=== PATIENT | female | born 2000 | race Two or more races ===

== ENCOUNTER 2021-02-10 16:44 | Emergency (ER) | payer BC, OTHER ==
[~2021-02-10] VITALS: Ht 162.6 cm; Wt 94.3 kg
[2021-02-10 21:15] VITALS: BP 113/72
== END 2021-02-10 21:18 | disposition home or self-care (01) ==
LOC: ER 16:44
DX: I88.9 Nonspecific lymphadenitis, unspecified (principal)
CPT/HCPCS: 70490; 76536; 81025

== ENCOUNTER 2021-07-28 20:13 | Emergency (ER) | payer BC ==
[~2021-07-28] VITALS: Ht 162.6 cm; Wt 94.8 kg
[2021-07-29] MEDS ORDERED: methylPREDNISolone SOD SUCC 125 MG/2 ML VL IM ONE (02:15)
[2021-07-29] MEDS ORDERED: PRED20TA2 PO (04:43)
[2021-07-29] MEDS ORDERED: IBUP800T27 PO (04:43)
[2021-07-29 05:52] VITALS: BP 109/68
== END 2021-07-29 05:59 | disposition home or self-care (01) ==
LOC: ER 20:13
DX: B27.90 Infectious mononucleosis, unspecified without complication (principal); J03.90 Acute tonsillitis, unspecified; Z20.822 Contact with and (suspected) exposure to COVID-19
CPT/HCPCS: 36415; 86308; 87070; 87426; 87880; 96372; 99283; J2930

== ENCOUNTER 2023-03-07 15:07 | Emergency (ER) | payer BC ==
[~2023-03-07] VITALS: Ht 162.6 cm; Wt 106.5 kg
[~2023-03-07 15:07] MED LIST: IBUP-1456 PO; PRED20TA2 PO
[2023-03-07 15:30] VITALS: BP 106/65; PULSE 83; RESP 15; TEMP 98.2; O2SAT 96
[2023-03-07 15:49] LABS: Basophils # (auto) 0 10 ^3/uL (0-0.2); Basophils % (auto) 0.3 % (0.0-2.0); Eosinophils # (auto) 0.2 10 ^3/uL (0-0.8); Eosinophils % (auto) 2.9 % (0.0-7.0); Hematocrit 39.1 % (36.0-46.0); Hemoglobin 13.1 g/dL (12.2-16.2); Lymphocytes # (auto) 2.4 10 ^3/uL (0.4-5.4); Lymphocytes % (auto) 29.5 % (10.0-50.0); Mean Corpuscular Hemoglobin 28.4 pg (28.0-32.0); Mean Corpuscular Hgb Conc. 33.5 g/dL (32.0-36.0); Mean Corpuscular Volume 84.6 fL (80.0-100.0); Monocytes # (auto) 0.6 10 ^3/uL (0-1.3); Monocytes % (auto) 6.8 % (0.0-12.0); Neutrophils % (auto) 60.5 % (37.0-80.0); Nucleated Red Blood Cells % 0.2 %; Red Blood Cells 4.63 10^6/uL (4.0-5.20); Red Cell Distribution Width 13.8 % (11.8-14.3); White Blood Cell 8.3 10^3/uL (4.4-10.8)
[2023-03-07 16:11] LABS: Urine Bacteria FEW /hpf (None Seen); Urine Blood 3+ /uL (Negative); Urine Clarity HAZY (Clear); Urine Color Yellow (Yellow); Urine Mucus FEW (None Seen); Urine Protein, UAD Negative (Negative); Urine Specific Gravity 1.024 (1.001-1.035); Urine Urobilinogen Normal (Negative); Urine WBC <1 /hpf (0 - 5)
[2023-03-07 16:15] LABS: Alanine Aminotransferase 91 U/L (7-40); Albumin 4.7 g/dL (3.2-4.8); Alkaline Phosphatase 65 U/L (46-116); Anion Gap 8.7 (5-15); Aspartate Aminotransferase 54 U/L (13-40); BUN/Creatinine Ratio 16.9 (10.0-20.0); Bilirubin, Total 0.3 mg/dL (0.2-1.0); Blood Urea Nitrogen 12 mg/dL (9-23); Calcium 9.4 mg/dL (8.7-10.4); Carbon Dioxide 25.3 mmol/L (20-30); Chloride 106 mmol/L (98-107); Glucose 100 mg/dL (74-106); Sodium 140 mmol/L (136-145); Total Protein 7.4 g/dL (5.7-8.2)
[2023-03-07] MEDS ORDERED: NITR-87 PO (17:09)
[2023-03-07] MEDS ORDERED: cefTRIAXone SOD 1,000 MG VL IM ONE (17:15)
== END 2023-03-07 18:18 | disposition home or self-care (01) ==
LOC: ER 15:07
DX: N92.0 Excessive and frequent menstruation with regular cycle (principal); R10.2 Pelvic and perineal pain; N39.0 Urinary tract infection, site not specified
CPT/HCPCS: 36415; 76830; 76856; 80053; 81001; 84702; 85025; 96372; 99285; J0696

== ENCOUNTER 2025-01-25 13:03 | Emergency (ER) | payer BC ==
[~2025-01-25] VITALS: Ht 162.6 cm; Wt 95.3 kg
[~2025-01-25 13:03] MED LIST changes: +NITR-87 PO
[2025-01-25] MEDS ORDERED: AUG875T PO (13:25)
--- NOTE | 2025-01-25 13:25 | ED.PDOC ---
History of Present Illness(SKN HPI Comments 24 year old presents for animal bite Bite occurred to the right anterior knee Animal was possible greer dog Immunization status up-to-date Denies abnormal animal behavior Denies history of immunocompromise (HIV hep B hep C) Denies fever chills night sweats Denies redness around the area Tdap: unknown Time Seen by MD: 13:16 Primary Care Provider: NONE History of Present Illness: Nurses Notes, Medications, Allergies Allergies: Coded Allergies: NO KNOWN ALLERGIES (Unverified , 02/10/21) Home Meds Active Scripts Amoxicillin & Pot Clavulanate (AUGMENTIN TABLET) 875 Mg Tb, 875 MG PO BID for 7 Days, #14 TAB 0 Refills Prov:BETTY LORA NP 01/25/25 Nitrofurantoin Monohydrate Mac (Macrobid) 100 Mg Cap, 100 MG PO BID for 7 Days, #14 CAP Prov:ALANA HANLEY MD 03/07/23 Prednisone (Prednisone) 20 Mg Tab, 20 MG PO BID for 5 Days, #10 MG 0 Refills Prov:VIKTORIYA FRANCES 07/29/21 Ibuprofen (Ibuprofen) 800 Mg Tab, 1 TAB PO TID, #30 TAB 0 Refills Prov:VIKTORIYA FRANCES 07/29/21 Information Source: Patient Past Medical History PAST MEDICAL HISTORY: Denies Surgical History: Denies all surgeries STAFFING MANAGER History: No Pertinent STAFFING MANAGER History Family History Family History: Reviewed,noncontributory to illness, Unknown Social History Smoker: Non-Smoker Alcohol: Denies ETOH Use Drugs: Denies Drug Use Lives In: Home All Other Systems: Reviewed and Negative (PER HPI) Physical Exam General Appearance: No Apparent Distress, Normal HEENT: Normal ENT Inspection, Pharynx Normal, TMs Normal Neck: Full Range of Motion, Non-Tender, Normal, Normal Inspection Respiratory: Chest Non-Tender, Lungs Clear, No Accessory Muscle Use, No Respiratory Distress, Normal Breath Sounds Cardiovascular: No Edema, No JVD, No Murmur, No Gallop, Normal Peripheral Pulses, Regular Rate/Rhythm Breast Exam: Deferred Gastrointestinal: No Organomegaly, Non Tender, No Pulsatile Mass, Normal Bowel Sounds, Soft Genitalia: Deferred Pelvic: Deferred Rectal: Deferred Extremities: No calf tenderness, Normal capillary refill, Normal inspection, Normal range of motion, Non-tender, No pedal edema Musculoskeletal : Apperance: Normal Neurologic: Alert, document review attorney II-XII nml as Tested, No Motor Deficits, Normal Affect, Normal Mood, No Sensory Deficits Cerebellar Function: Normal Reflexes: Normal Skin: Dry, Normal Color, Warm Lymphatic: No Adenopathy Was a procedure done? Was a procedure done?: No Images 1 - 2 mm puncture wounds. No active bleeding. Full range of motion of the patella. No foreign body visualized. Distal neurovascular sensation intact. Cap refill less than 3 seconds. DP 2+ Differential Diagnosis (INTG) Differential Diagnosis: Laceration, Puncture Wound, Other X-Ray, Labs, Meds, VS Vital Signs Date Time Temp Pulse Resp B/P (MAP) Pulse Ox O2 Delivery O2 Flow Rate FiO2 01/25/25 14:35 99.2 86 17 121/73 (89) 98 99.2 01/25/25 14:35 86 18 98 Room Air* 0 21 01/25/25 13:26 99.2 86 17 121/73 (89) 98 99.2 Current Medications Medications (Trade) Dose Ordered Sig/Yohannes Route Start Time Stop Time Status Last Admin Diphtheria/ Tetanus/Acell Pertussis (Boostrix T-Dap) 0.5 ml ONCE ONCE IM 01/25/25 13:30 01/25/25 14:21 DC 01/25/25 14:40 Neomycin/ Polymyxin/ Bacitracin (Triple Antibiotic) 1 applic ONCE ONCE TOP 01/25/25 13:30 01/25/25 14:21 DC 01/25/25 14:39 X-Ray, Labs, Meds, VS Comment Based on the history, exam, and test performed, there does not seem to be a retained foreign body, nerve injury, vascular injury, tendon injury, bone injury or foreign body. Wound appears clean. No evidence of purulent discharge. Doubtful for rabies as the dog is not a wild animal. No rabies vaccine given. Tdap given Wound cleaned in the ER with jet irrigation. Will let wound heal by secondary intention to decrease risk of abscess formation. Patient will be discharged home with prophylactic antibiotics. Will discharge home with Augmentin 875mg PO BID x 7days. Return to ER as needed. Time of 1ST Reevaluation: 13:22 Reevaluation 1ST: Improved Patient Education/Counseling: Diagnosis, Treatment Family Education/Counseling: Diagnosis, Treatment SEPSIS Sepsis Screen Vital Signs Date Time Temp Pulse Resp B/P (MAP) Pulse Ox O2 Delivery O2 Flow Rate FiO2 01/25/25 14:35 99.2 86 17 121/73 (89) 98 99.2 01/25/25 14:35 86 18 98 Room Air* 0 21 01/25/25 13:26 99.2 86 17 121/73 (89) 98 99.2 Medications Medications Dose Ordered Sig/Yohannes Route Start Time Stop Time Status Last Admin Dose Admin Diphtheria/ Tetanus/Acell Pertussis 0.5 ml ONCE ONCE IM 01/25/25 13:30 01/25/25 14:21 DC 01/25/25 14:40 Neomycin/ Polymyxin/ Bacitracin 1 applic ONCE ONCE TOP 01/25/25 13:30 01/25/25 14:21 DC 01/25/25 14:39 Departure 1 Departure Time of Disposition: 13:49 Impression: Primary Impression: Animal bite Disposition: 01 HOME / SELF CARE / HOMELESS Condition: Stable e-Prescriptions Amoxicillin & Pot Clavulanate (AUGMENTIN TABLET) 875 Mg Tb 875 MG PO BID for 7 Days, #14 TAB 0 Refills Prov: BETTY LORA NP 01/25/25 Critical Care Note Critical Care Time?: No Stability Stability form required: No Heart Score Heart Score: Heart Score Response (Comments) Value History N/A 0 EKG N/A 0 Age N/A 0 Risk Factors N/A 0 Troponin N/A 0 Total 0 BETTY LORA NP Jan 25, 2025 13:25
[2025-01-25 14:35] VITALS: BP 121/73; PULSE 86; RESP 18; TEMP 99.2; O2SAT 98
[2025-01-25] MEDS: NEOMYCIN-BACITRACIN-POLYM UNITDOSE PKG TOP OINT TOP ONE (14:39)
[2025-01-25] MEDS: TETANUS-DIPTH-ACEL PERTUSSIS 0.5ML SYR Tdap IM ONE (14:40)
== END 2025-01-25 14:44 | disposition home or self-care (01) ==
LOC: ER 13:03
DX: S81.051A Open bite, right knee, initial encounter (principal); W54.0XXA Bitten by dog, initial encounter; Y93.89 Activity, other specified; Y92.89 Other specified places as the place of occurrence of the external cause; Y99.8 Other external cause status
CPT/HCPCS: 90471; 90715